=== PATIENT | female | born 1960 | race Caucasian/White ===

== ENCOUNTER 2017-10-14 19:54 | Inpatient (IN) ==
[2017-10-14] MEDS ORDERED: Ipratropium/Albuterol Neb 3 ML IH ONE (20:00)
--- NOTE | 2017-10-14 20:06 | Emergency Department Note ---
Disposition Clinical Impression: COPD exacerbation, Hypoxia Disposition: Admitted As Inpatient Condition: Good General Adult HPI - General Chief complaint: ED Shortness of Breath/Dyspnea Stated complaint: ISIDRO Time Seen by Provider: 10/14/17 20:00 Source: patient, EMS Mode of arrival: EMS Limitations: no limitations Nursing Notes Reviewed: Yes Vital Signs Reviewed: Yes - History of Present Illness HPI Narrative: 56 y/o female from home who reports about 24 hours of progressive dyspnea and cough. She reports a history of COPD. She has had an increased cough. No fever. She reports her breathing treatments do not help enough over the last day. No LE edema. No hx of DVT/PE. No hemoptysis. No known hx of cancer. EMS gave her a breathing treatment and Solumedrol. She is unable to lay flat and needs to sit up to catch her breath. No edema anywhere. No hx of heart problems. Only other PMH is DM and she is on metformin. Radiation: non-radiation Pain Scale: 0 Consistency: constant Improves with: nothing Worsens with: other (exertion) Associated symptoms: Reports: denies other symptoms Treatments Prior to Arrival: none - Related Data Allergies Allergy/AdvReac Type Severity Reaction Status Date / Time No Known Allergies Allergy Verified 10/14/17 19:55 All systems ED: reviewed and negative except as stated. Constitutional: Denies: fever ENT ED: Denies: throat pain Cardiovascular: Denies: chest pain Respiratory: Reports: cough, dyspnea, wheezes Gastrointestinal: Denies: abdominal pain Integumentary: Denies: rash Neurological: Denies: headache Physical Exam - General General appearance: alert - Head Head exam: atraumatic - Eye Eye exam: Present: normal appearance, PERRL - ENT ENT exam: normal exam, normal oropharynx - Neck Neck exam: Present: normal inspection - Chest Chest inspection: Present: normal inspection - Respiratory Respiratory exam: Present: other (Minimal air movement bilaterally. Wheezes present) - Cardiovascular Cardiovascular exam: Present: normal rhythm, tachycardia - Abdominal Exam Abdominal exam: Present: soft, Non-Tender - Extremities Exam Extremities exam: Present: normal inspection - Neurological Exam Neurological exam: Present: alert, oriented X3 - Skin Skin exam: Present: warm, dry Course Course Narrative: Initially on arrival she was on Bipap. Improved after duonebs and received solumedol. No longer requiring bipap but does still require O2. Substantial improvement in work of breathing. Will admit due to COPD exacerbation w/ new O2 requirement. Vital Signs Temperature 97.6 F 10/14/17 19:57 Pulse Rate 126 10/14/17 19:57 Respiratory Rate 30 10/14/17 19:57 Blood Pressure 192/103 10/14/17 19:57 O2 Sat by Pulse Oximetry 100 10/14/17 19:57 Temperature 97.6 F 10/14/17 19:57 Pulse Rate 110 10/14/17 23:26 Respiratory Rate 26 10/14/17 23:26 Blood Pressure 131/89 10/14/17 23:26 O2 Sat by Pulse Oximetry 94 10/14/17 23:26 Oxygen Delivery Oxygen Delivery Nasal Cannula Medical Decision Making - Medical Records Medical records reviewed: Yes I reviewed the patient's medical records. - Lab Data Lab results reviewed: Yes I reviewed the patient's lab results. Result diagrams: 10/14/17 20:05 10/14/17 20:05 Lab Results 10/14/17 10/14/17 10/14/17 Range/Units 20:05 20:05 20:05 WBC 19.3 H (4.3-11.1) K/mcL RBC 4.88 (3.82-4.97) M/mcL Hgb 15.9 H (11.5-15.4) g/dL Hct 47.0 H (35.3-44.9) % MCV 96.3 (83.0-100.0) fL MCH 32.6 (28.0-33.3) pg MCHC 33.8 (31.6-35.5) g/dL RDW 13.4 (11.5-14.5) % Plt Count 229 (140-400) K/mcL MPV 9.2 L (9.4-12.4) fL Immature Gran % 0.4 (0-4) % Seg Neutrophils % 85.2 % Lymphocytes % 6.3 % Monocytes % 7.9 % Eosinophils % 0.0 % Basophils % 0.2 % Neutrophils # 16.5 H (1.6-8.9) K/mcL Lymphocytes # 1.2 (0.6-4.6) K/mcL Monocytes # 1.5 H (0.0-1.3) K/mcL Eosinophils # 0.0 (0.0-0.6) K/mcL Basophils # 0.0 (0.0-0.2) K/mcL Sodium 136 (136-145) mEq/L Potassium 4.0 (3.5-5.1) mEq/L Chloride 102 (98-107) mEq/L Carbon Dioxide 31 H (23-29) mEq/L BUN 9 (6-20) mg/dL Creatinine 0.55 L (0.60-1.20) mg/dL Est GFR ( Amer) > 60 (> 60) Est GFR (Non-Af Amer) > 60 (> 60) BUN/Creatinine Ratio 16 (6-26) Glucose 142 H (70-105) mg/dL Calculated Osmolality 283 (280-300) Calcium 9.5 (8.6-10.3) mg/dL Troponin I < 0.03 (< 0.04) ng/mL B-Natriuretic Peptide (Less than 100) pg/mL 10/14/17 Range/Units 20:05 WBC (4.3-11.1) K/mcL RBC (3.82-4.97) M/mcL Hgb (11.5-15.4) g/dL Hct (35.3-44.9) % MCV (83.0-100.0) fL MCH (28.0-33.3) pg MCHC (31.6-35.5) g/dL RDW (11.5-14.5) % Plt Count (140-400) K/mcL MPV (9.4-12.4) fL Immature Gran % (0-4) % Seg Neutrophils % % Lymphocytes % % Monocytes % % Eosinophils % % Basophils % % Neutrophils # (1.6-8.9) K/mcL Lymphocytes # (0.6-4.6) K/mcL Monocytes # (0.0-1.3) K/mcL Eosinophils # (0.0-0.6) K/mcL Basophils # (0.0-0.2) K/mcL Sodium (136-145) mEq/L Potassium (3.5-5.1) mEq/L Chloride (98-107) mEq/L Carbon Dioxide (23-29) mEq/L BUN (6-20) mg/dL Creatinine (0.60-1.20) mg/dL Est GFR ( Amer) (> 60) Est GFR (Non-Af Amer) (> 60) BUN/Creatinine Ratio (6-26) Glucose (70-105) mg/dL Calculated Osmolality (280-300) Calcium (8.6-10.3) mg/dL Troponin I (< 0.04) ng/mL B-Natriuretic Peptide 90 (Less than 100) pg/mL - Radiology Data Radiology results reviewed: Yes I reviewed the patient's radiology results. Chest X-Ray 10/14/17 20:00 IMPRESSION: 1. No active pulmonary disease. 2. COPD. D/ / Canelo Kurtz MD / Canelo Kurtz MD Interpreting Provider: Canelo Kurtz MD Chest CTA 10/14/17 20:49 IMPRESSION: No evidence of pulmonary embolism or acute pulmonary abnormality. Severe emphysema D/ / Saleem Matthew MD / Saleem Matthew MD Interpreting Provider: Saleem Matthew MD - EKG Data EKG #1 EKG attestation: Yes I reviewed and interpreted this EKG. EKG shows normal: sinus rhythm Rate: tachycardia Rhythm: NSR Interpretation: other (Sinus tachycardia) Critical Care Time Critical Care Time: Yes Total Critical Care Time: 40 Attestation: Critical care performed: Time is exclusive of separately billable procedures. Time includes: direct patient care, patient reassessment, coordination of patient care, interpretation of data (laboratory data, radiology data, and respiratory data), review of patient's medical records, medical consultation and documentation of patient care. Procedures included in critical care time: Procedures excluded from critical care time: Attestation Statement - Attestation Attestation: IPercy MD, personally evaluated this patient and discussed their management with the resident physician. I reviewed the resident's note and agree with the documented findings, medical decision making, and plan of care. 56-year-old female who has a history of COPD and continues to smoke presents to the emergency department with a complaint of difficulty breathing which started earlier today and has been progressively worse throughout the day. She is not on home oxygen. There has been a productive cough with thick dark green sputum. No fever. No chest pain. Patient received a nebulizer treatment and Solu-Medrol in route to the ED and arrived here on a nonrebreather. On arrival patient still in moderate respiratory distress. She was placed on BiPAP. On examination patient is a thin cachectic female in moderate respiratory distress. She is alert and oriented. There is no cyanosis or diaphoresis. Breath sounds are markedly decreased bilaterally. No definite rales or wheezes noted but little air movement. Heart is tachycardic and regular. Abdomen soft with normal bowel sounds. No pedal edema. Labs reviewed. Chest x-ray shows COPD but no acute cardiopulmonary abnormality noted. CTA of the chest obtained and showed no evidence of pulmonary embolism or other acute pulmonary abnormality. Consistent with severe COPD. Patient received triple DuoNeb treatments here in the emergency department and was continued on her BiPAP with slight improvement in her dyspnea but continues to be tachycardic with a heart rate around 130. The hospitalist, Dr. Rain, was consulted and accepted admission of the patient.
[2017-10-14] MEDS ORDERED: *HR* LORazepam 2 MG/ML VIAL IVP ONE (20:15)
[2017-10-14 20:19] LABS: Basophils % 0.2 %; Hemoglobin 15.9 g/dL (11.5-15.4); Immature Granulocytes % 0.4 % (0-4); Lymphocytes # 1.2 K/mcL (0.6-4.6); Lymphocytes % 6.3 %; Mean Corpuscular HGB Conc 33.8 g/dL (31.6-35.5); Mean Corpuscular Hemoglobin 32.6 pg (28.0-33.3); Mean Corpuscular Volume 96.3 fL (83.0-100.0); Mean Platelet Volume 9.2 fL (9.4-12.4); Monocytes # 1.5 K/mcL (0.0-1.3); Monocytes % 7.9 %; Neutrophils # 16.5 K/mcL (1.6-8.9); Platelet Count 229 K/mcL (140-400); Red Blood Count 4.88 M/mcL (3.82-4.97); Red Cell Distribution Width 13.4 % (11.5-14.5); Segmented Neutrophils % 85.2 %
[2017-10-14 20:41] LABS: BUN/Creatinine Ratio 16 (6-26); Blood Urea Nitrogen 9 mg/dL (6-20); Calcium 9.5 mg/dL (8.6-10.3); Carbon Dioxide 31 mEq/L (23-29); Chloride 102 mEq/L (98-107); Glucose 142 mg/dL (70-105); Osmolality,Calculated 283 (280-300); Sodium 136 mEq/L (136-145); eGFR For African Americans > 60 (> 60); eGFR For Non-African Americans > 60 (> 60)
[2017-10-15] MEDS ORDERED: Naloxone 0.4 MG/ML INJ IVP PRN (00:29)
--- NOTE | 2017-10-15 00:36 | Internal Med History&Physical ---
Date of Encounter: 10/15/17 Time of Encounter: 00:36 Assessment and Plan (1) COPD exacerbation Current visit: Yes Status: Acute 56/female Background history of COPD. Patient is still active smoker. Smokes one to 2 packs of cigarettes every day. On examination: Using accessory muscles of respiration in propped up position. She has obvious intercostal retraction. She has polyphonic wheezes noted. Assessment: Acute exacerbation of chronic obstructive pulmonary disease. In active smoker. Plan: Admit as inpatient. Intravenous ceftriaxone 1 g every 24 hours. Intravenous azithromycin 500 mg every 24 hours. Intravenous Solu-Medrol 40 mg every 6 hours. Inhaled bronchodilators every 4 hours. Close monitoring of the respiratory status. Of note: I have examined this patient in2 A 33 Patient's RN was present along with me. Patient's sister was in the room. Plan of care explained at length. and family verbalize understanding. (2) Diabetes mellitus Current visit: Yes Status: Acute Patient is known to have a borderline type 2 diabetes mellitus. Patient is presently taking metformin. We will stop the metformin. We will follow the recommendations from the subcutaneous insulin order set. 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 Internal Medicine - H&P: HPI Chief complaint: Shortness of breath Admitted From: Emergency Dept Plans for Post Hospital Care: Home History of present illness: Ms. Villalobos is a 56 year old female who follows up with Dr. Colón was advanced practitioner from [facility]. Patient has a background medical history of advanced COPD. Patient is still active smoker every day. Patient also has a borderline diabetes for which she takes metformin. Patient has worsening shortness of breath for past one week but in last 48 hours it was significantly worsened. Patient also claims that there was a change in the color of expectoration. It was very difficult for patient to even walk a few steps at home and this was the reason her sister decided to bring her to the emergency room for further evaluation. At emergency room, patient was evaluated. Basic labs were drawn. Chest CTA was done. This was negative for acute pulmonary embolism. Patient does have advanced COPD. Reason for admission: Acute exacerbation of chronic obstructive pulmonary disease. This requires inpatient monitoring/intravenous antibiotics and close monitoring of the respiratory system. Past Med Surg Social Fam HX - Past Medical History Medical history: COPD, diabetes Psychiatric history: no psych history - Social History Smoking Status: Current every day smoker Smokeless Tobacco Status: No Alcohol use: none Drug use: none - Family History Mother Hx Family Cardiac Disorders: Yes Father Hx Family Cancer: Yes Internal Medicine - H&P: Meds Budesonide/Formoterol 80/4.5 [Symbicort 80/4.5] IH 10/15/17 [History] Cholecalciferol (Vitamin D3) [Vitamin D] 1,000 unit PO ONCE 10/15/17 [History] Metformin HCl [Fortamet] 500 mg PO HS 10/15/17 [History] 3 Allergy/AdvReac Type Severity Reaction Status Date / Time No Known Allergies Allergy Verified 10/14/17 19:55 All Systems PM: A 10-system review of systems was performed and is negative for pertinent findings except as documented above in the HPI. - Constitutional Constitutional: no chills, no fever(s), no night sweats - EENT Eyes: no change in vision, no discharge, no pain, no photophobia Ears: no ear discharge, no ear pain, no tinnitus Nose, mouth and throat: no dysphagia, no nasal discharge, no neck pain, no sore throat - Cardiovascular Cardiovascular ROS IM: no chest pain, no diaphoresis, no dyspnea, no lightheadedness, no palpitations, no syncope - Respiratory Respiratory: cough, dyspnea, wheezing, excessive phlegm production, change in phlegm color - Gastrointestinal Gastrointestinal: no abdominal pain, no diarrhea, no hematemesis, no hematochezia, no melena, no nausea, no vomiting - Genitourinary Genitourinary: no change in urinary stream, no dysuria, no flank pain, no hematuria - Musculoskeletal Musculoskeletal ROS IM: no numbness, no tingling - Integumentary Integumentary IM: no rash, no unusual bruising - Neurological Neurological ROS: no confusion, no convulsions, no focal weakness, no numbness, no tingling, no tremor(s) - Hematologic/Lymphatic Hematologic/Lymphatic: no easy bruising - Constitutional Vitals: Temp Pulse Resp BP Pulse Ox 97.6 F 100 24 161/89 96 10/14/17 19:57 10/15/17 00:00 10/15/17 00:00 10/15/17 00:00 10/15/17 00:00 General appearance: Present: A&O X 3, pleasant, no acute distress, answers questions appropriately - Head Head exam: Present: atraumatic, normocephalic - Eye Eye exam: Present: PERRL, conjuntiva pink, sclera anicteric Pupils: Present: PERRL - Neck Neck exam general surgery: Present: supple, trachea midline. Absent: lymphadenopathy - Respiratory Respiratory exam: Present: accessory muscle use, CTAB, wheezes. Absent: rales, rhonchi - Cardiovascular Cardiovascular exam: Present: RRR, +S1, +S2. Absent: diastolic murmur, gallop, rubs, systolic murmur - GI/Abdominal GI/Abdominal exam: Present: normal bowel sounds, soft, no peritoneal signs. Absent: distended, tenderness - Extremities Exam Extremities exam: Present: warm, radial pulses palpable and symmetrical. Absent : calf tenderness, cyanotic, pedal edema - Neurological Exam Neurological exam: Present: CN II-XII intact, oriented X3, no focal deficits. Absent: pronater drift, facial droop, speech deficit - Skin Skin exam: Present: dry, intact Internal Med - H&P Results - Labs CBC & Chem 7: 10/15/17 01:50 10/15/17 01:50
[2017-10-15] MEDS: MethylPREDNISolone 40 MG/ML VIAL IVP SCH ×4 (00:56→16:53)
[2017-10-15] MEDS: cefTRIAXone 1,000 MG in Water for inj. (sterile) 20 ML 20 ML IVPB SCH (00:57)
[2017-10-15] MEDS ORDERED: Azithromycin 500 MG in D5% in Water 250 ML IVPB SCH (01:00)
[2017-10-15] MEDS: Acetaminophen 325 MG TABLET PO PRN ×3 (01:13→19:49)
[2017-10-15 02:02] LABS: Basophils % 0.1 %; Hematocrit 46.7 % (35.3-44.9); Hemoglobin 15.6 g/dL (11.5-15.4); Immature Granulocytes % 0.2 % (0-4); Lymphocytes # 0.3 K/mcL (0.6-4.6); Lymphocytes % 2.4 %; Mean Corpuscular HGB Conc 33.4 g/dL (31.6-35.5); Mean Corpuscular Volume 95.9 fL (83.0-100.0); Mean Platelet Volume 9.3 fL (9.4-12.4); Monocytes # 0.4 K/mcL (0.0-1.3); Monocytes % 3.1 %; Neutrophils # 12.6 K/mcL (1.6-8.9); Platelet Count 175 K/mcL (140-400); Red Blood Count 4.87 M/mcL (3.82-4.97); Red Cell Distribution Width 13.5 % (11.5-14.5); Segmented Neutrophils % 94.2 %
[2017-10-15 02:37] LABS: Alanine Aminotransferase 36 Units/L (7-52); Albumin/Globulin Ratio 1.2 (1.1-2.2); Alkaline Phosphatase 61 Units/L (34-104); Aspartate Amino Transferase 35 Units/L (13-39); BUN/Creatinine Ratio 21 (6-26); Bilirubin,Total 0.7 mg/dL (0.3-1.0); Blood Urea Nitrogen 11 mg/dL (6-20); Calcium 9.3 mg/dL (8.6-10.3); Carbon Dioxide 29 mEq/L (23-29); Chloride 100 mEq/L (98-107); Cholesterol 157 mg/dL (< 200); Globulin 3.3 g/dL (2.4-3.5); Glucose 192 mg/dL (70-105); HDL Cholesterol 78 mg/dL (40-59); LDL Cholesterol,Calculated 70 mg/dL (0-99); Magnesium 1.9 mg/dL (1.6-2.6); Osmolality,Calculated 285 (280-300); Phosphorous 3.5 mg/dL (2.7-4.5); Potassium 4.4 mEq/L (3.5-5.1); Sodium 135 mEq/L (136-145); Total Protein 7.3 g/dL (6.4-8.9); Triglycerides 44 mg/dL (< 150); eGFR For African Americans > 60 (> 60); eGFR For Non-African Americans > 60 (> 60)
[2017-10-15] MEDS: Ipratropium/Albuterol Neb 3 ML IH SCH ×6 (04:06→20:57)
[2017-10-15] MEDS: *HR* Heparin 5,000 UNIT/ML VIAL SQ SCH ×2 (04:59→16:53)
[2017-10-15] MEDS ORDERED: Dextrose Gel 15 GM/37.5 ML TUBE PO PRN ×2 (05:27)
[2017-10-15] MEDS ORDERED: *HR* Dextrose 50 % in Water (Syg) 50 ML SYRINGE IVP PRN (05:27)
[2017-10-15] MEDS ORDERED: D5% in Water 1,000 ML IVC PRN (05:27)
[2017-10-15 07:13] LABS: INR 1.1; Prothrombin Time 12.1 Seconds (9.4-12.1)
[2017-10-15 07:28] LABS: Activated Partial Thrombo Time 27.7 Seconds (26.0-36.0)
--- NOTE | 2017-10-15 08:55 | Internal Med Progress Note ---
Date of Encounter: 10/15/17 Time of Encounter: 08:49 - Assessment and plan (1) Acute respiratory failure Current Visit: Yes Status: Acute Assessment and plan: Secondary to COPD exacerbation. Suspect pneumonia given purulent sputum. - Check echocardiogram - Follow-up procalcitonin, if negative then discontinue antibiotics. - Blood culture, sputum culture, urinary antigents - Continue Solu-Medrol, Duo Neb, Rocephin/Azithromycin Qualifiers: Respiratory failure complication: hypoxia Qualified Code(s): J96.01 - Acute respiratory failure with hypoxia (2) COPD exacerbation Current Visit: Yes Status: Acute (3) Diabetes mellitus Current Visit: Yes Status: Acute Qualifiers: Diabetes mellitus type: type 2 Diabetes mellitus complication status: with unspecified complications Diabetes mellitus longterm insulin use: unspecified drum sprayer insulin use status Qualified Code(s): E11.8 - Type 2 diabetes mellitus with unspecified complications (4) DVT prophylaxis Current Visit: Yes Status: Acute Assessment and plan: Heparin 5000 units subcutaneous bid (5) Cachexia Current Visit: Yes Status: Acute Assessment and plan: She says this has been going on slowly for past 10 years. She denies night sweats, hemoptysis, fevers/chills. CTA did not show any lymphadenopathy or nodules to suspect lung cancer. 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 Villalobos is a 56 year old female COPD and tobacco abuse, DM presented for one week of SOB with wheezing, cough and sputum. In ED a CTA was negativ for PE, troponin negative x3. He was started on Rocephin and azithromycin, Solu-Medrol , and Duo Neb therapy. 2 SIRS criteria on admission for tachycardia 110-133 bpm and leukocytosis 19k. - Constitutional Vitals: Temp Pulse Resp BP Pulse Ox 98.2 F 107 19 134/82 97 10/15/17 08:15 10/15/17 08:15 10/15/17 08:15 10/15/17 08:15 10/15/17 08:15 General appearance: Present: A&O X 3, pleasant, no acute distress, answers questions appropriately Internal Medicine: Result - Labs CBC & Chem 7: 10/15/17 01:50 10/15/17 01:50 Labs: Short CBC 10/15/17 Range/Units 01:50 WBC 13.4 H (4.3-11.1) K/mcL Hgb 15.6 H (11.5-15.4) g/dL Hct 46.7 H (35.3-44.9) % Plt Count 175 (140-400) K/mcL Neutrophils # 12.6 H (1.6-8.9) K/mcL BMP 10/15/17 01:50 Sodium 135 L Potassium 4.4 Chloride 100 Carbon Dioxide 29 BUN 11 Creatinine 0.52 L Glucose 192 H Calcium 9.3 Cardiac Enzymes 10/15/17 10/15/17 Range/Units 01:50 06:55 Troponin I < 0.03 < 0.03 (< 0.04) ng/mL Liver Function 10/15/17 Range/Units 01:50 Total Bilirubin 0.7 (0.3-1.0) mg/dL AST 35 (13-39) Units/L ALT 36 (7-52) Units/L Alkaline Phosphatase 61 (34-104) Units/L Albumin 4.0 (3.5-5.7) g/dL - ABG Interpretation ABG results: PT/INR, D-dimer PT 12.1 Seconds (9.4-12.1) 10/15/17 06:55 Consult Discharge Plan - Plan Referrals: Earline Colón, SUPERVISOR [employer] [Primary Care Provider] -
[2017-10-15] MEDS: Insulin LISPRO 300 UNITS/3 ML VIAL SQ SCH ×4 (08:58→19:54)
[2017-10-15] MEDS ORDERED: Acetaminophen 325 MG TABLET PO PRN (12:55)
[2017-10-16] MEDS: MethylPREDNISolone 40 MG/ML VIAL IVP SCH ×2 (00:09→05:48)
[2017-10-16] MEDS: cefTRIAXone 1,000 MG in Water for inj. (sterile) 20 ML 20 ML IVPB SCH (00:09)
[2017-10-16] MEDS: Ipratropium/Albuterol Neb 3 ML IH SCH ×6 (00:57→19:29)
[2017-10-16] MEDS: Acetaminophen 325 MG TABLET PO PRN ×3 (05:48→21:46)
[2017-10-16] MEDS: *HR* Heparin 5,000 UNIT/ML VIAL SQ SCH ×2 (05:48→17:24)
[2017-10-16 06:09] LABS: Basophils % 0.1 %; Hematocrit 42.7 % (35.3-44.9); Hemoglobin 14.3 g/dL (11.5-15.4); Immature Granulocytes % 0.6 % (0-4); Lymphocytes # 0.6 K/mcL (0.6-4.6); Lymphocytes % 4.9 %; Mean Corpuscular HGB Conc 33.5 g/dL (31.6-35.5); Mean Corpuscular Volume 95.5 fL (83.0-100.0); Mean Platelet Volume 9.8 fL (9.4-12.4); Monocytes # 0.5 K/mcL (0.0-1.3); Monocytes % 3.7 %; Neutrophils # 11.2 K/mcL (1.6-8.9); Platelet Count 187 K/mcL (140-400); Red Blood Count 4.47 M/mcL (3.82-4.97); Red Cell Distribution Width 13.6 % (11.5-14.5); Segmented Neutrophils % 90.7 %
[2017-10-16 06:39] LABS: BUN/Creatinine Ratio 33 (6-26); Blood Urea Nitrogen 17 mg/dL (6-20); Calcium 9.7 mg/dL (8.6-10.3); Carbon Dioxide 32 mEq/L (23-29); Chloride 102 mEq/L (98-107); Glucose 155 mg/dL (70-105); Osmolality,Calculated 291 (280-300); Phosphorous 2.6 mg/dL (2.7-4.5); Potassium 4.1 mEq/L (3.5-5.1); Sodium 138 mEq/L (136-145); eGFR For African Americans > 60 (> 60); eGFR For Non-African Americans > 60 (> 60)
--- NOTE | 2017-10-16 08:29 | Internal Med Progress Note ---
Date of Encounter: 10/16/17 Time of Encounter: 10:45 - Assessment and plan (1) Acute respiratory failure Current Visit: Yes Status: Acute Assessment and plan: Due to acute COPD exacerbation. Continue O2 supplementation. Treat underlying COPD. Qualifiers: Respiratory failure complication: hypoxia Qualified Code(s): J96.01 - Acute respiratory failure with hypoxia (2) COPD exacerbation Current Visit: Yes Status: Acute Assessment and plan: On bronchodilators. Doing better today. We will transition to oral steroids. If patient continues to improve, she should be stable for discharge tomorrow. (3) Cachexia Current Visit: Yes Status: Acute Assessment and plan: Encouraged oral diet. Added Ensure Plus per nutrition recommendations (4) DVT prophylaxis Current Visit: Yes Status: Acute (5) Diabetes mellitus Current Visit: Yes Status: Chronic Assessment and plan: Fairly controlled. 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 Has not restricted his symptoms have improved. She continues to have cough but denies any significant wheezing. No chest pain. No palpitations. - Constitutional Vitals: Temp Pulse Resp BP Pulse Ox 97.5 F L 86 18 143/72 98 10/16/17 07:00 10/16/17 07:00 10/16/17 07:27 10/16/17 07:00 10/16/17 07:27 General appearance: Present: A&O X 3, pleasant, no acute distress, answers questions appropriately - Respiratory Respiratory exam: Present: prolonged expiratory phase. Absent: accessory muscle use, rales, rhonchi, wheezes - Cardiovascular Cardiovascular exam: Present: RRR, +S1, +S2. Absent: diastolic murmur, gallop, rubs, systolic murmur - GI/Abdominal GI/Abdominal exam: Present: normal bowel sounds, soft, no peritoneal signs. Absent: distended, tenderness - Extremities Exam Extremities exam: Present: warm, radial pulses palpable and symmetrical. Absent : calf tenderness, cyanotic, pedal edema - Neurological Exam Neurological exam: Present: oriented X3, no focal deficits. Absent: facial droop, speech deficit Internal Medicine: Result - Labs CBC & Chem 7: 10/16/17 05:11 10/16/17 05:11 Labs: Short CBC 10/16/17 Range/Units 05:11 WBC 12.4 H (4.3-11.1) K/mcL Hgb 14.3 (11.5-15.4) g/dL Hct 42.7 (35.3-44.9) % Plt Count 187 (140-400) K/mcL Neutrophils # 11.2 H (1.6-8.9) K/mcL BMP 10/16/17 05:11 Sodium 138 Potassium 4.1 Chloride 102 Carbon Dioxide 32 H BUN 17 Creatinine 0.51 L Glucose 155 H Calcium 9.7 Cardiac Enzymes 10/15/17 Range/Units 13:03 Troponin I < 0.03 (< 0.04) ng/mL - ABG Interpretation ABG results: PT/INR, D-dimer PT 12.1 Seconds (9.4-12.1) 10/15/17 06:55 Consult Discharge Plan - Plan Referrals: Earline Colón, COLORING MACHINE OPERATOR [Primary Care Provider] -
[2017-10-16] MEDS: Azithromycin 250 MG TABLET PO SCH (08:49)
[2017-10-16] MEDS: Insulin LISPRO 300 UNITS/3 ML VIAL SQ SCH ×4 (08:50→20:10)
[2017-10-16] MEDS: predniSONE 20 MG TABLET PO SCH (17:25)
[2017-10-16] MEDS: Saline Nasal Spray 44 ML BOTTLE NS PRN (21:46)
[2017-10-17] MEDS: Ipratropium/Albuterol Neb 3 ML IH SCH ×4 (00:11→11:32)
[2017-10-17] MEDS: cefTRIAXone 1,000 MG in Water for inj. (sterile) 20 ML 20 ML IVPB SCH (01:04)
[2017-10-17] MEDS: *HR* Heparin 5,000 UNIT/ML VIAL SQ SCH (05:34)
[2017-10-17 07:16] LABS: Basophils % 0.1 %; Hematocrit 40.8 % (35.3-44.9); Hemoglobin 13.3 g/dL (11.5-15.4); Immature Granulocytes % 0.6 % (0-4); Lymphocytes % 7.8 %; Mean Corpuscular HGB Conc 32.6 g/dL (31.6-35.5); Mean Corpuscular Hemoglobin 31.4 pg (28.0-33.3); Mean Corpuscular Volume 96.5 fL (83.0-100.0); Mean Platelet Volume 9.4 fL (9.4-12.4); Monocytes # 0.8 K/mcL (0.0-1.3); Platelet Count 193 K/mcL (140-400); Red Blood Count 4.23 M/mcL (3.82-4.97); Red Cell Distribution Width 13.7 % (11.5-14.5); Segmented Neutrophils % 85.5 %
[2017-10-17 07:49] LABS: Mycoplasma pneumoniae IgG 0.22 U/L (<=0.09)
[2017-10-17 08:01] LABS: BUN/Creatinine Ratio 46 (6-26); Blood Urea Nitrogen 22 mg/dL (6-20); Calcium 9.4 mg/dL (8.6-10.3); Carbon Dioxide 33 mEq/L (23-29); Chloride 104 mEq/L (98-107); Glucose 116 mg/dL (70-105); Osmolality,Calculated 292 (280-300); Phosphorous 3.3 mg/dL (2.7-4.5); Potassium 4.7 mEq/L (3.5-5.1); Sodium 139 mEq/L (136-145); eGFR For African Americans > 60 (> 60); eGFR For Non-African Americans > 60 (> 60)
[2017-10-17] MEDS: Azithromycin 250 MG TABLET PO SCH (09:13)
[2017-10-17] MEDS: Acetaminophen 325 MG TABLET PO PRN (09:14)
[2017-10-17] MEDS: Saline Nasal Spray 44 ML BOTTLE NS PRN (09:14)
[2017-10-17] MEDS: predniSONE 20 MG TABLET PO SCH (09:14)
[2017-10-17 11:31] VITALS: BP 160/84
--- NOTE | 2017-10-17 11:33 | Discharge Summary ---
Orders not resulted at time of discharge: Pending orders 10/15/17 00:32 Culture,Blood [BC] Routine 10/15/17 01:50 Culture,Blood,Additional [BC] Routine 10/15/17 13:03 Culture,Blood [BC] Routine 10/15/17 14:09 Culture,Sputum with Gram Stain [RM] Routine 10/18/17 04:00 BMP [Basic Metabolic Panel] AM 0400 Complete Blood Count [HEME] AM 0400 Phosphorous AM 0400 10/19/17 04:00 Phosphorous AM 0400 10/20/17 04:00 Phosphorous AM 0400 10/21/17 04:00 Phosphorous AM 0400 10/22/17 04:00 Phosphorous AM 0400 10/23/17 04:00 Phosphorous AM 0400 10/24/17 04:00 Phosphorous AM 0400 10/25/17 04:00 Phosphorous AM 0400 Date of Encounter: 10/17/17 Time of Encounter: 11:31 - Discharge Diagnosis (1) Acute respiratory failure Priority: Primary Status: Acute Qualifiers: Respiratory failure complication: hypoxia Qualified Code(s): J96.01 - Acute respiratory failure with hypoxia (2) COPD exacerbation Priority: Secondary Status: Acute (3) Cachexia Priority: Secondary Status: Acute (4) DVT prophylaxis Priority: Secondary Status: Acute (5) Diabetes mellitus Priority: Secondary Status: Chronic Qualifiers: Diabetes mellitus type: type 2 Diabetes mellitus complication status: with unspecified complications Diabetes mellitus usp insulin use: without usp use Qualified Code(s): E11.8 - Type 2 diabetes mellitus with unspecified complications Hospital course: Ms. Villalobos is a 56 year old female patient with history of diabetes mellitus and was hospitalized here with complaints of shortness of breath. She was diagnosed with acute COPD exacerbation and was treated with intravenous steroids along with azithromycin. Her symptoms have since improved and she is now doing much better. She is clinically stable to be discharged home. She has significant COPD and has been requiring O2 supplementation to keep her sats greater than 80%. She would benefit from home oxygen at 2 L/m continuous flow to keep her sats greater than 88%. [id number] evaluation completed today. She will be discharged today on steroid taper and complete antibiotic course with azithromycin. She will follow up with pulmonology as outpatient for further management of her COPD. Discharge discussed with: patient - Time Spent with Patient Total time spent providing and/or coordinating discharge services: Less than 30 minutes (28 min) - Discharge Medications Prescriptions: Azithromycin [Zithromax] 500 mg PO Q24H #4 tablet Lisinopril [Zestril] 5 mg PO DAILY #30 tablet Nicotine Patch [Nicoderm] 21 mg TD DAILY #30 patch.td24 predniSONE [PredniSONE] 30 mg PO DAILY 6 Days tablet Home Medications: Albuterol Sulfate [Albuterol Inhaler] 1 puff IH AD 10/15/17 [History] Budesonide/Formoterol 80/4.5 [Symbicort 80/4.5] 1 puff IH AD 10/15/17 [History] Cholecalciferol (Vitamin D3) [Vitamin D3] 1,000 unit PO ONCE 10/15/17 [History] Metformin HCl [Fortamet] 500 mg PO HS 10/15/17 [History] Azithromycin [Zithromax] 500 mg PO Q24H #4 tablet 10/17/17 [Rx] Lisinopril [Zestril] 5 mg PO DAILY #30 tablet 10/17/17 [Rx] Nicotine Patch [Nicoderm] 21 mg TD DAILY #30 patch.td24 10/17/17 [Rx] predniSONE [PredniSONE] 30 mg PO DAILY 6 Days tablet 10/17/17 [Rx] Allergies/Adverse Reactions: 3 Allergy/AdvReac Type Severity Reaction Status Date / Time No Known Allergies Allergy Verified 10/14/17 19:55 Date of admission: 10/15/17 00:29 Primary care physician: Earline Colón CNP Consults: 10/15/17 09:08 Consult to Nutrition [CONS] Routine Comment: Consulting Provider: NUTRITION Reason for Dietary Consult: PO Supplementation Discharging clinician: Pablo Palma Anticipated date of discharge: 10/17/17 - Constitutional Vitals: Temp Pulse Resp BP Pulse Ox 97.9 F 57 14 153/83 95 10/17/17 08:10 10/17/17 08:10 10/17/17 08:10 10/17/17 08:10 10/17/17 11:26 General appearance: Present: A&O X 3, pleasant, no acute distress, answers questions appropriately - Neck Neck exam general surgery: Present: supple, trachea midline. Absent: lymphadenopathy - Respiratory Respiratory exam: Present: prolonged expiratory phase, wheezes. Absent: accessory muscle use, rales, rhonchi - Cardiovascular Cardiovascular exam: Present: RRR, +S1, +S2. Absent: diastolic murmur, gallop, rubs, systolic murmur - GI/Abdominal GI/Abdominal exam: Present: normal bowel sounds, soft, no peritoneal signs. Absent: distended, tenderness - Extremities Exam Extremities exam: Present: warm, radial pulses palpable and symmetrical. Absent : calf tenderness, cyanotic, pedal edema - Neurological Exam Neurological exam: Present: alert, oriented X3, no focal deficits. Absent: facial droop, speech deficit - Patient Status Disposition: Home, Self-Care Condition: Good Functional capacity at discharge: independent ambulation Overall status at discharge: patient is progressing back to baseline - Discharge Instructions Instructions: Acute Respiratory Distress Syndrome (DC), Diabetes Mellitus Type 2 in Adults (DC), Chronic Obstructive Pulmonary Disease (DC) Follow Up With: Earline Colón CNP [Primary Care Provider] - 10/23/17 1:00 pm (in 1-2 weeks Please follow up as schedule) Raciel Fisher MD [Partnered Physician] - (in 1-2 weeks Office will call patient for an appt...) - Diet and Activity Activity: increase activity as tolerated Diet: diabetic diet, low fat, low cholesterol, low salt diet
[2017-10-17] MEDS: Insulin LISPRO 300 UNITS/3 ML VIAL SQ SCH ×2 (13:18)
== END 2017-10-17 16:02 | disposition home or self-care (01) | DRG 190 ==
LOC: 2ANU 19:54 → EMEROO 19:54 → 2ANU 10-15 00:11 → SUATTDRO 10-15 00:29
PROVIDERS: ADMIT Internal Medicine; ATTEND Internal Medicine